=== PATIENT | male | born 1960 | race Two or more races ===

== ENCOUNTER 2019-12-30 07:55 | Day surgery (SDC) | payer BC ==
[~2019-12-30 07:55] MED LIST: PROPOFOL INJ 200 MG/20 ML VIAL IV ONE
[2019-12-30 12:13] VITALS: BP 110/80
--- NOTE | 2019-12-30 14:18 | Operative Report ---
Operative Report DATE OF SURGERY: 12/30/19 Operative Report: The risk, benefits and alternatives of the procedure including the risk of bleeding, perforation requiring surgery have been explained to the patient in detail and informed consent has been obtained. Patient is placed in a left, lateral decubital position. Timeout was called. Propofol medication is administered. Rectal examination is done which did not reveal any masses, tears or fissures. An Olympus videoscope was introduced into the patient's rectum. Scope was then carefully advanced all the way to the cecum. Cecum was identified by the usual anatomical landmarks including the ileocecal valve as well as the appendiceal office. Photodocumentation is obtained. Scope was then sequentially pulled back via the various segments of the colon including the ascending colon, hepatic flexure, transverse colon, splenic flexure, descending colon finding to the rectosigmoid portions of the colon. Retroflexion maneuvers performed. The risks benefits and alternatives of the procedure explained to the patient in detail and informed consent is obtained.A GIF Olympus video scope was inserted into the patient's mouth and hypopharynx, the esophagus is identified intubated and insufflated, the scope was then advanced through the esophagus stomach and duodenum ,retroflexion maneuver is done ,the esophagus stomach and first and second portions of the duodenum examined PREOPERATIVE DIAGNOSIS: Colorectal cancer screening. Nausea vomiting POSTOPERATIVE DIAGNOSIS: Sessile rectosigmoid polyp removal with snare polypectomy and retrieved. Pedunculated hepatic flexure polyp snared but not able to be retrieved. Another rectal polyp ablated in situ. Internal hemorrhoids. Gastritis status post biopsy OPERATION: Colonoscopy with snare polypectomy. EGD with biopsy SURGEON: REDDY PAYNE ANESTHESIA: LMAC TISSUE REMOVED OR ALTERED: As noted above. COMPLICATIONS: None. ESTIMATED BLOOD LOSS: None. INTRAOPERATIVE FINDINGS: As noted above. PROCEDURE: Patient tolerated the procedure well. No immediate postprocedure complications are noted. Patient is discharged in good condition. Discharge date 12/30/2019. Discharge diet: Regular. Discharge activity: Regular. 2 to 3-week follow-up to discuss findings. Patient is instructed to call the office or proceed to the emergency room should there be any further problems or questions. Wait on the pathology. 3 to 5-year surveillance colonoscopy.
== END 2019-12-30 11:14 ==
LOC: END 07:55 → EDBD 10:30 → END 11:14
PROVIDERS: ATTEND Internal Medicine Gastroenterology
DX: K29.50 Unspecified chronic gastritis without bleeding (principal); D12.8 Benign neoplasm of rectum; K63.5 Polyp of colon; K64.8 Other hemorrhoids; K76.0 Fatty (change of) liver, not elsewhere classified; K76.9 Liver disease, unspecified; Z20.828 Contact with and (suspected) exposure to other viral communicable diseases; Z87.891 Personal history of nicotine dependence
CPT/HCPCS: 43239; 45385; 88342 ×2; 88305 ×2; 00813; J2704; 813